=== PATIENT | male | born 1965 | race Caucasian/White ===

== ENCOUNTER 2021-08-17 10:57 | Day surgery (SDC) | payer BC ==
[2021-08-12 16:55] LABS: BASOPHILS % (AUTO) 0.6 % (0-1); EOSINOPHILS # (AUTO) 0.3 X10'3 (0-0.9); EOSINOPHILS % (AUTO) 3.6 % (0-6); HEMATOCRIT 39.4 % (42.0-52.0); LYMPHOCYTES # (AUTO) 2.4 X10'3 (1.1-4.8); LYMPHOCYTES % (AUTO) 29.7 % (21-51); MEAN CORPUSCULAR HEMOGLOBIN 29.9 PG (27.0-31.0); MEAN CORPUSCULAR HGB CONC 35.4 g/dL (33.0-36.5); MEAN CORPUSCULAR VOLUME 84.5 FL (78-98); MEAN PLATELET VOLUME 7.2 FL (7.4-10.4); MONOCYTES # (AUTO) 0.6 X10'3 (0-0.9); MONOCYTES % (AUTO) 7.3 % (2-12); NEUTROPHILS # (AUTO) 4.8 X10'3 (1.8-7.7); NEUTROPHILS % (AUTO) 58.8 % (42-75); PLATELET COUNT 289 X10'3 (140-440); RED BLOOD COUNT 4.66 X10'6 (4.70-6.10); RED CELL DISTRIBUTION WIDTH 13.1 % (11.5-14.5); WHITE BLOOD COUNT 8.2 X10'3 (4.5-11.0)
[2021-08-12 17:04] LABS: ALBUMIN 4.1 G/DL (3.4-5.0); ANION GAP 11 (8-16); BLOOD UREA NITROGEN 19 MG/DL (7-18); BUN/CREATININE RATIO 18.8 (5.4-32.0); CALCIUM 8.9 MG/DL (8.5-10.1); CHLORIDE 97 MMOL/L (99-107); CREATININE 1.01 MG/DL (0.60-1.10); GLUCOSE 158 MG/DL (70-104); POTASSIUM 3.9 MMOL/L (3.5-5.1); SODIUM 134 MMOL/L (135-145); eGFR 76 ML/MIN
[2021-08-12 17:07] LABS: APTT 29 SECONDS (22-32)
[~2021-08-17] VITALS: Ht 167.6 cm; Wt 100.6 kg
[~2021-08-17 10:57] MED LIST: ASPI-1071 PO; ATOR20TA66 PO; CARV3.12 PO; LISI20TA28 PO; NITR0.4T SL
[2021-08-17] MEDS ORDERED: normal saline 1,000 ML IV SCH (11:10)
[2021-08-17] MEDS ORDERED: diphenhydrAMINE 25mg capsule PO PRN (11:10)
[2021-08-17] MEDS ORDERED: LORazepam 0.5 MG tablet PO PRN (11:10)
[2021-08-17 11:15] VITALS: BP 117/72
[2021-08-17] MEDS ORDERED: verapamil 2.5 mg/ml inj IV ONE (11:23)
[2021-08-17] MEDS ORDERED: nitroGLYCERIN-Tridil 50MG/D5W 250 ML IV ONE (11:23)
[2021-08-17] MEDS ORDERED: LIDOcaine 1% (10mg/ml)w/preservative injection 20ml MDV ONE (11:24)
[2021-08-17] MEDS ORDERED: heparin 1,000unit/ml 10ml vial 10 ML ONE (11:24)
[2021-08-17] MEDS ORDERED: iohexol 350MG/ML 100ml bottle IV ONE (11:24)
[2021-08-17] MEDS ORDERED: fentaNYL/PF 50MCG/1 ML 2ML syringe ONE (11:24)
[2021-08-17] MEDS ORDERED: midazolam 1 mg/ML 2ml injection ONE (11:24)
[2021-08-17] MEDS ORDERED: EZET10TA48 PO (12:16)
[2021-08-17] MEDS ORDERED: TRAZ-256 PO (12:16)
[2021-08-17] MEDS ORDERED: GABA-530 PO (12:16)
[2021-08-17] MEDS ORDERED: GLYB2.5T4 PO (12:16)
[2021-08-17] MEDS ORDERED: METF-900 PO (12:16)
[2021-08-17] MEDS ORDERED: PANT20TA18 PO (12:16)
[2021-08-17] MEDS ORDERED: CHOL20002 PO (12:16)
[2021-08-17] MEDS ORDERED: METO50TA17 PO (12:16)
[2021-08-17] MEDS ORDERED: MULT-269 PO (12:16)
[2021-08-17] MEDS ORDERED: POTA-192 PO (12:16)
[2021-08-17] MEDS ORDERED: ASPI81TA52 PO (12:23)
[2021-08-17] MEDS ORDERED: ATOR-2 PO (12:23)
[2021-08-17] MEDS ORDERED: iohexol 350 MG/ML 50ML vial IV ONE ×2 (14:06→14:09)
[2021-08-17 14:30] VITALS: BP 117/78
[2021-08-17] MEDS ORDERED: acetaminophen 325mg tablet PO PRN (14:40)
[2021-08-17] MEDS ORDERED: normal saline 1000ml 1,000 ML IV SCH (14:40)
[2021-08-17] MEDS ORDERED: proCHLORperazine 10 MG/2 ml inj IV PRN (14:40)
[2021-08-17] MEDS ORDERED: HYDROcodone/acetaminophen 5mg/325mg tablet PO PRN (14:40)
[2021-08-17] MEDS ORDERED: HYDROcodone/acetaminophen 10/325mg tab PO PRN (14:40)
[2021-08-17] MEDS ORDERED: ondansetron/PF 4mg/2ml inj IV PRN (14:40)
[2021-08-17] MEDS ORDERED: OXAZEpam 15mg capsule PO PRN (14:40)
[2021-08-17 14:45] VITALS: BP 124/75
[2021-08-17 15:00] VITALS: BP 100/56
[2021-08-17 15:45] VITALS: BP 107/61
[2021-08-17 15:52] VITALS: BP 113/68
== END 2021-08-17 16:30 | disposition home or self-care (01) ==
LOC: SSTAY O 10:57
PROVIDERS: ATTEND Internal Medicine Interventional Cardiology
DX: R94.39 Abnormal result of other cardiovascular function study (principal); R07.89 Other chest pain; I25.10 Atherosclerotic heart disease of native coronary artery without angina pectoris; I10 Essential (primary) hypertension; E11.9 Type 2 diabetes mellitus without complications; E78.5 Hyperlipidemia, unspecified; E66.9 Obesity, unspecified; Z68.38 Body mass index [BMI] 38.0-38.9, adult; Z79.84 Long term (current) use of oral hypoglycemic drugs; Z79.899 Other long term (current) drug therapy; Z79.01 Long term (current) use of anticoagulants; Z79.82 Long term (current) use of aspirin; Z95.1 Presence of aortocoronary bypass graft
CPT/HCPCS: 36415; 80048; 85025; 85610; 85730; 93005; 93459; 93567; 99152; A6258; C1769; J1644; J2250; J3010; J3490; J7030; Q0163; Q9967; 99153; A4620